=== PATIENT | female | born 1955 | race Caucasian/White ===

== ENCOUNTER 2017-03-09 13:46 | Emergency (ER) | payer BC ==
[2017-03-09 14:13] VITALS: BP 137/67
[2017-03-09] MEDS ORDERED: Acetaminophen/HYDROcodone 325-5 MG Tab PO ONE (14:18)
--- NOTE | 2017-03-09 14:23 | EDM.PDOC ---
ED HPI GENERAL MEDICAL PROBLEM - General Chief Complaint: Skin Complaint Stated Complaint: CELLULITIS ON THE FACE Time Seen by Provider: 03/09/17 14:10 Source of Information: Reports: Patient History Limitations: Reports: No Limitations - History of Present Illness INITIAL COMMENTS - FREE TEXT/NARRATIVE: 61 yo female was seen yesterday for a facial cellulitis of the L cheek. She was placed on Bactrim and Keflex and returns today as she feels it is getting worse. No fever. Has the periphery of her redness outlined yesterday, but this has worn off already. 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: Other (see below) (TMP/SMZ and cephelexin) - Related Data Allergies Allergy/AdvReac Type Severity Reaction Status Date / Time codeine Allergy Hives Verified 03/09/17 14:05 latex Allergy Rash Verified 03/09/17 14:05 metronidazole Allergy Burning Verified 03/09/17 14:05 morphine Allergy Hives Verified 03/09/17 14:05 Penicillins Allergy Rash Verified 03/09/17 14:05 tape Allergy Hives Uncoded 03/09/17 14:05 Home Meds: Home Meds Hydrocodone/Acetaminophen [Hydrocodon-Acetaminophn 10-325] 1 tab PO Q4H PRN 11/01 [History] Multivitamin [Multivitamins] 1 cap PO DAILY 01/19/14 [History] Pregabalin [Lyrica] 100 mg PO BID 01/19/14 [History] Estradiol [Estrace] 2 mg PO DAILY 09/14/15 [History] Levothyroxine Sodium [Synthroid] 100 mcg PO DAILY 09/14/15 [History] Cephalexin [Cephalexin] 1 tab PO QID 03/09/17 [History] Clindamycin Hcl [IMW: Clindamycin HCl] 300 mg PO .EVERY 6 HOURS #40 cap [Rx] Hydrocodone/Acetaminophen [Mobile 5-325] 1 - 2 tab PO Q4H PRN #14 tablet [Rx] Sulfamethoxazole/Trimethoprim [Bactrim Ds Tablet] 1 tab PO BID 03/09/17 [History ] Past Medical History HEENT History: Reports: Impaired Vision Cardiovascular History: Reports: None Respiratory History: Reports: None Gastrointestinal History: Reports: None Genitourinary History: Reports: None CLASSIFICATION ANALYST History: Reports: None Musculoskeletal History: Reports: Arthritis, Fibromyalgia, RA Neurological History: Reports: Neuropathy, Peripheral Psychiatric History: Reports: None Endocrine/Metabolic History: Reports: None Other Endocrine/Metabolic History: HAVING THYROID SURGERY TODAY Hematologic History: Reports: None Immunologic History: Reports: None Oncologic (Cancer) History: Reports: Thyroid Other Oncologic History: HAVING HER THYROID SURGERY Dermatologic History: Reports: None - Infectious Disease History Infectious Disease History: Reports: Chicken Pox - Past Surgical History Head Surgeries/Procedures: Reports: None HEENT Surgical History: Reports: Adenoidectomy, Oral Surgery, Tonsillectomy Cardiovascular Surgical History: Reports: None GI Surgical History: Reports: Appendectomy, Cholecystectomy, Colonoscopy Female Surgical History: Reports: Hysterectomy, Salpingo-Oophorectomy Endocrine Surgical History: Reports: None Musculoskeletal Surgical History: Reports: None Oncologic Surgical History: Reports: None Dermatological Surgical History: Reports: None Social & Family History - Family History HEENT: Reports: Cataract, Retinal Detachment Cardiac: Reports: None Respiratory: Reports: Asthma GI: Reports: None : Reports: None OBGYN: Reports: Endometriosis Musculoskeletal: Reports: Arthritis Neurological: Reports: Neuropathy, Peripheral Psychiatric: Reports: Anxiety, Bipolar, Depression Endocrine/Metabolic: Reports: None Hematologic: Reports: None Immunologic: Reports: None Dermatologic: Reports: None Oncologic: Reports: None - Tobacco Use Smoking Status *Q: Never Smoker Years of Tobacco use: 20 Packs/Tins Daily: 0.5 Used Tobacco, but Quit: Yes Month Tobacco Last Used: 2001 Second Hand Smoke Exposure: No - Caffeine Use Caffeine Use: Reports: Coffee, Soda - Alcohol Use Days Per Week of Alcohol Use: 0 - Recreational Drug Use Recreational Drug Use: No Drug Use in Last 12 Months: No ED ROS GENERAL - Review of Systems Review Of Systems: See Below Constitutional: Reports: Malaise HEENT: Reports: No Symptoms. Denies: Dental Pain, Ear Discharge, Ear Pain, Eye Discharge, Nose Pain, Rhinitis, Throat Pain, Throat Swelling Respiratory: Reports: No Symptoms Cardiovascular: Reports: No Symptoms Skin: Reports: Erythema (L cheek) ED EXAM, SKIN/RASH Exam: See Below Exam Limited By: No Limitations General Appearance: Alert, WD/WN, No Apparent Distress, Anxious Eye Exam: Bilateral Eye: Normal Inspection Ears: Normal External Exam, Normal Canal, Hearing Grossly Normal Nose: Normal Inspection, Normal Mucosa, No Blood Throat/Mouth: Normal Inspection, Normal Lips, Normal Teeth, Normal Oropharynx, Normal Voice, No Airway Compromise Head: Atraumatic, Normocephalic, Facial Tenderness (and redness L cheek) Neck: Normal Inspection, Supple, Non-Tender, Full Range of Motion Skin: Warm, Dry, Intact, Erythema (L cheek), Increased Warmth. No: Ecchymosis, Lymphangitis, Zoster-Like Rash Location, Skin: Face (L cheek) Characteristics: Confluent, Erythematous Associated features: Warmth, Tenderness. No: Swelling Lymphatic: No Adenopathy Course - Vital Signs Text/Narrative:: Clindamycin 600 mg IV, Mobile 1 po-feels better after Mobile, tolerated clindamycin Last Recorded V/S: Last Vital Signs Temp 36.9 C 03/09/17 14:11 Pulse 91 03/09/17 14:11 Resp 14 03/09/17 14:11 BP 137/67 03/09/17 14:11 Pulse Ox 98 03/09/17 14:11 - Orders/Labs/Meds Meds: Medications Discontinued Medications Generic Name Dose Route Start Last Admin Trade Name Freq PRN Reason Stop Dose Admin Hydrocodone Bitart/Acetaminophen 1 tab 03/09/17 14:18 03/09/17 14:44 Mobile 325-5 Mg PO 03/09/17 14:19 1 tab ONETIME ONE Administration Clindamycin Phosphate 600 mg/ 54 mls @ 100 mls/hr 03/09/17 14:17 03/09/17 14: 44 Sodium Chloride IV 03/09/17 14:49 100 mls/hr ONETIME ONE Administration Departure - Departure Time of Disposition: 15:20 Disposition: Home, Self-Care 01 Condition: Fair Clinical Impression: Facial cellulitis - Discharge Information Prescriptions: Clindamycin Hcl [IMW: Clindamycin HCl] 300 mg PO .EVERY 6 HOURS #40 cap Hydrocodone/Acetaminophen [Mobile 5-325] 1 - 2 tab PO Q4H PRN #14 tablet PRN Reason: Pain Referrals: Kian Vyas MD [Primary Care Provider] - Forms: ED Department Discharge Additional Instructions: Stop cephalexin. Continue Bactrim. Add clindamycin as directed. Mobile or acetaminophen for pain relief. Warm compresses to area on your face several times a day. Recheck with your provider on Saturday morning. Return if worse in the interim.
== END 2017-03-09 15:38 | disposition home or self-care (01) ==
LOC: JP.ED 13:46
DX: L03.211 Cellulitis of face (principal); Z87.891 Personal history of nicotine dependence; Z79.899 Other long term (current) drug therapy; Z88.0 Allergy status to penicillin; Z88.5 Allergy status to narcotic agent; Z88.1 Allergy status to other antibiotic agents; Z91.040 Latex allergy status; Z91.048 Other nonmedicinal substance allergy status
CPT/HCPCS: 96365; 99283; A9270; J7050; S0077

== ENCOUNTER 2017-08-27 19:28 | Emergency (ER) | payer BC ==
[2017-08-27] MEDS ORDERED: HYDROmorphone 1 MG/ML Syringe IM ONE (20:00)
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
[2017-08-27 22:13] VITALS: BP 135/82
--- NOTE | 2017-08-28 08:51 | CR ---
Elbow Min 3V Lt CLINICAL HISTORY: Pain, fall FINDINGS: No acute fracture or dislocation is noted. The fat pads are in normal position. Articular s urfaces are smooth Impression: Negative
== END 2017-08-27 22:28 | disposition home or self-care (01) ==
LOC: JP.ED 19:28
DX: S22.42XA Multiple fractures of ribs, left side, initial encounter for closed fracture (principal); Z88.5 Allergy status to narcotic agent; Z91.040 Latex allergy status; Z88.0 Allergy status to penicillin; Z88.8 Allergy status to other drugs, medicaments and biological substances; Z79.899 Other long term (current) drug therapy; V29.60XA Unspecified motorcycle rider injured in collision with unspecified motor vehicles in traffic accident, initial encounter
CPT/HCPCS: 71250; 73080; 96372; 99284; J1170

== ENCOUNTER 2020-02-25 19:56 | Emergency (ER) | payer MEDICARE, BC ==
[2020-02-25] MEDS ORDERED: Lactated Ringers 1,000 ML IV ONE (20:31)
[2020-02-25] MEDS ORDERED: diphenhydrAMINE 50 MG/ML SDV IVPUSH ONE (20:46)
[2020-02-25] MEDS ORDERED: Prochlorperazine 10 MG/2 ML SDV IVPUSH ONE (20:46)
[2020-02-25] MEDS ORDERED: Ketorolac 30 MG/ML SDV IVPUSH ONE (20:47)
--- NOTE | 2020-02-25 20:51 | EDM.PDOC ---
ED HPI GENERAL MEDICAL PROBLEM - General Chief Complaint: Headache Stated Complaint: VOMITING STARTED TODAY Time Seen by Provider: 02/25/20 20:35 Source of Information: Reports: Patient, Family, Old Records, RN History Limitations: Reports: No Limitations - History of Present Illness INITIAL COMMENTS - FREE TEXT/NARRATIVE: 64 yo female here with ABDUL that she woke up with yesterday and has gradually worsened. No fever. Has nausea and vomiting today. No stiff neck or photophobia. ABDUL is slightly worse on the left. Not able to keep oral meds down today. Does have a pHx of migraine, but her migraines are usually associated with photophobia. No unilateral weakness or numbness. Onset: Gradual Onset Date: 02/24/20 Duration: Day(s): (>1 day), Getting Worse Location: Reports: Head Quality: Reports: Ache Severity: Moderate Improves with: Reports: None Worsens with: Reports: Other (time) Context: Reports: Other (See HPI) Associated Symptoms: Reports: Headaches, Nausea/Vomiting. 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 (see below) (none) Headache Pain Score (Numeric/FACES): 7 - Related Data Allergies Allergy/AdvReac Type Severity Reaction Status Date / Time codeine Allergy Hives Verified 02/25/20 20:27 latex Allergy Rash Verified 02/25/20 20:27 metronidazole Allergy Burning Verified 02/25/20 20:27 morphine Allergy Hives Verified 02/25/20 20:27 Penicillins Allergy Rash Verified 02/25/20 20:27 tape Allergy Hives Uncoded 02/25/20 20:27 Home Meds: Home Meds Multivitamin [Multivitamins] 1 cap PO DAILY 01/19/14 [History] Estradiol [Estrace] 2 mg PO DAILY 09/14/15 [History] Albuterol Sulfate [Albuterol Sulfate Hfa] 2 inh INH Q6H PRN 02/25/20 [History] Desipramine HCl 25 mg PO DAILY 02/25/20 [History] Estrogens, Conjugated [Premarin] 1.25 mg PO DAILY 02/25/20 [History] Levothyroxine [Synthroid] 88 mcg PO DAILY 02/25/20 [History] Ubidecarenone [Co Q-10] 100 mg PO DAILY 02/25/20 [History] metFORMIN HCl [Metformin HCl ER] 500 mg PO DAILY 02/25/20 [History] traMADol [Ultram] 50 mg PO BID PRN 02/25/20 [History] Past Medical History HEENT History: Reports: Impaired Vision Cardiovascular History: Reports: None Respiratory History: Reports: None Gastrointestinal History: Reports: None Genitourinary History: Reports: None 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: Musculoskeletal History: Reports: Arthritis, Fibromyalgia, RA Neurological History: Reports: Neuropathy, Peripheral Psychiatric History: Reports: None Endocrine/Metabolic History: Reports: None Other Endocrine/Metabolic History: THYROID SURGERY Hematologic History: Reports: None Immunologic History: Reports: None Oncologic (Cancer) History: Reports: Thyroid Other Oncologic History: HAVING HER THYROID SURGERY Dermatologic History: Reports: None - Infectious Disease History Infectious Disease History: Reports: Chicken Pox, Measles, Mumps - Past Surgical History HEENT Surgical History: Reports: Adenoidectomy, Oral Surgery, Tonsillectomy Cardiovascular Surgical History: Reports: None GI Surgical History: Reports: Appendectomy, Cholecystectomy, Colonoscopy Female Surgical History: Reports: Hysterectomy, Salpingo-Oophorectomy Endocrine Surgical History: Reports: Thyroidectomy Neurological Surgical History: Reports: None Musculoskeletal Surgical History: Reports: None, Other (See Below) Other Musculoskeletal Surgeries/Procedures:: Foot surgery bilateral Oncologic Surgical History: Reports: None Social & Family History - Family History HEENT: Reports: Cataract, Retinal Detachment Cardiac: Reports: None Respiratory: Reports: Asthma GI: Reports: None : Reports: None OBGYN: Reports: Endometriosis Musculoskeletal: Reports: Arthritis Neurological: Reports: Neuropathy, Peripheral Psychiatric: Reports: Anxiety, Bipolar, Depression Endocrine/Metabolic: Reports: None Hematologic: Reports: None Immunologic: Reports: None Dermatologic: Reports: None Oncologic: Reports: None - Tobacco Use Tobacco Use Status *Q: Former Tobacco User Packs/Tins Daily: 0.5 Used Tobacco, but Quit: Yes Month/Year Tobacco Last Used: 02/1999 - Caffeine Use Caffeine Use: Reports: Soda, Tea - Recreational Drug Use Recreational Drug Use: No ED ROS GENERAL - Review of Systems Review Of Systems: See Below Constitutional: Reports: No Symptoms HEENT: Reports: No Symptoms Respiratory: Reports: No Symptoms Cardiovascular: Reports: No Symptoms GI/Abdominal: Reports: Nausea, Vomiting. Denies: Diarrhea, Hematemesis : Reports: No Symptoms Musculoskeletal: Reports: No Symptoms. Denies: Neck Pain Skin: Reports: No Symptoms Neurological: Reports: Headache. Denies: Numbness, Trouble Speaking, Difficulty Walking, Weakness, Change in Speech, Gait Disturbance Psychiatric: Reports: No Symptoms - Physical Exam Exam: See Below Exam Limited By: No Limitations General Appearance: Alert, WD/WN, No Apparent Distress Eye Exam: Bilateral Eye: Normal Inspection Ears: Normal External Exam, Normal Canal, Hearing Grossly Normal Nose: Normal Inspection, No Blood Throat/Mouth: Normal Inspection, Normal Lips, Normal Oropharynx, Normal Voice, No Airway Compromise Head Exam: Atraumatic, Normocephalic Neck: Normal Inspection Respiratory/Chest: No Respiratory Distress, Lungs Clear, Normal Breath Sounds, No Accessory Muscle Use Cardiovascular: Regular Rate, Rhythm, No Edema, Tachycardia GI/Abdominal: Normal Bowel Sounds, Soft, Non-Tender, No Distention Neuro Exam (Abbreviated): Alert, Oriented, CN II-XII Intact, Normal Cognition, No Motor/Sensory Deficits Back Exam: Normal Inspection. No: CVA Tenderness (R), CVA Tenderness (L) Extremities: Normal Inspection, Normal Range of Motion, Non-Tender, No Pedal Edema Psychiatric: Normal Affect, Normal Mood Skin Exam: Warm, Dry, Intact, Normal Color, No Rash Course - Vital Signs Last Recorded V/S: Last Vital Signs Temp 35.9 C L 02/25/20 20:15 Pulse 84 02/25/20 22:20 Resp 16 02/25/20 22:20 BP 142/76 H 02/25/20 22:20 Pulse Ox 96 02/25/20 22:20 - Orders/Labs/Meds Meds: Medications Discontinued Medications Generic Name Dose Route Start Last Admin Trade Name Jason PRN Reason Stop Dose Admin Diphenhydramine HCl 25 mg 02/25/20 20:46 02/25/20 21:15 Benadryl IVPUSH 02/25/20 20:47 25 mg ONETIME ONE Administration Hydromorphone HCl 0.5 mg 02/25/20 22:50 Dilaudid IVPUSH 02/25/20 22:51 ONETIME ONE Lactated Ringer's 1,000 mls @ 1,000 mls/hr 02/25/20 20:31 02/25/20 21:12 Ringers, Lactated IV 02/25/20 21:30 1,000 mls/hr BOLUS ONE Administration Ketorolac Tromethamine 30 mg 02/25/20 20:47 02/25/20 21:11 Toradol IVPUSH 02/25/20 20:48 30 mg ONETIME ONE Administration Prochlorperazine Edisylate 10 mg 02/25/20 20:46 02/25/20 21:18 Compazine IVPUSH 02/25/20 20:47 10 mg ONETIME ONE Administration - Radiology Interpretation Free Text/Narrative:: Head CT scan-neg CT Results Date: 02/25/20 CT Results Time: 23:03 - Re-Assessments/Exams Free Text/Narrative Re-Assessment/Exam: 02/25/20 22:22 ABDUL down to 4/10, nausea gone, BP down to 140 systolic. Will get a CT scan of head. Free Text/Narrative Re-Assessment/Exam: 02/25/20 22:51 ABDUL still a 4/[address] scan, will give 0.5 mg IV Dilaudid Departure - Departure Time of Disposition: 23:10 Disposition: Home, Self-Care 01 Condition: Fair Clinical Impression: Headache Qualifiers: Headache type: unspecified Headache chronicity pattern: acute headache Intractability: not intractable Qualified Code(s): R51.9 - Headache, unspecified - Discharge Information *PRESCRIPTION DRUG MONITORING PROGRAM REVIEWED*: No *COPY OF PRESCRIPTION DRUG MONITORING REPORT IN PATIENT SVEN: No Instructions: General Headache Without Cause, [id number] Referrals: Kian Vyas MD [Primary Care Provider] - Forms: ED Department Discharge Additional Instructions: Use Zofran as needed for nausea every 6 hrs. Take ibuprofen 600 mg as needed sta rting after 4 am for headache. Add acetaminophen 1000 mg starting anytime as needed for ABDUL. No driving tonight. Recheck as needed. Sepsis Event Note (ED) - Evaluation Sepsis Screening Result: No Definite Risk - Focused Exam Vital Signs: Vital Signs Temp Pulse Resp BP Pulse Ox 02/25/20 22:20 84 16 142/76 H 96 02/25/20 21:25 94 16 143/67 H 99 02/25/20 20:15 35.9 C L 117 H 16 192/84 H 98 02/25/20 20:12 35.9 C L 117 H 16 192/84 H 98
[2020-02-25] MEDS ORDERED: HYDROmorphone 0.5 MG/0.5 ML Syringe IVPUSH ONE (22:50)
[2020-02-25 22:54] VITALS: BP 142/76; PULSE 84
--- NOTE | 2020-02-25 23:01 | CRLCT ---
INDICATION: Worst headache TECHNIQUE: CT head without contrast. COMPARISON: None available FINDINGS: There is cortical atrophy. The ventricles are within normal limits for the patient`s age. There is no mass effect or midline shift. White matter hypodensities are suggestive of chronic small vessel ischemic changes. There are few small chronic and age indeterminate ganglionic, left thalamic and internal capsule lacunar infarcts. There is no loss of thompson-white differentiation. There is no evidence of an acute intracranial hemorrhage. No acute calvarial fracture is seen. The visualized paranasal sinuses and mastoid air cells are clear. The visualized orbits are within normal limits. IMPRESSION: No evidence of an acute intracranial hemorrhage, mass effect or loss of thompson-white differentiation. Atrophy and chronic ischemic changes. Few age-indeterminate lacunar infarcts. Correlate clinically. Dictated by Toñito Cody MD @ 02/25/2020 11:00:07 PM Please note that all CT scans at this facility use dose modulation, iterative reconstruction, and/or weight-based dosing when appropriate to reduce radiation dose to as low as reasonably achievable. Dictated by: Toñito Cody MD @ 02/25/2020 23:00:12 (Electronically Signed)
== END 2020-02-25 23:27 | disposition home or self-care (01) ==
LOC: JP.ED 19:56
DX: R51.9 Headache, unspecified (principal); G62.9 Polyneuropathy, unspecified; Z88.5 Allergy status to narcotic agent; Z91.040 Latex allergy status; Z88.1 Allergy status to other antibiotic agents; Z91.048 Other nonmedicinal substance allergy status; Z79.84 Long term (current) use of oral hypoglycemic drugs; Z79.899 Other long term (current) drug therapy; Z87.891 Personal history of nicotine dependence; Z88.0 Allergy status to penicillin
CPT/HCPCS: 70450; 96374; 96375; 99284; J0780; J1170; J1200; J1885; J7120; 99283